=== PATIENT | male | born 1995 | race Caucasian/White ===

== ENCOUNTER 2018-02-13 21:47 | Emergency (ER) | payer SELFPAY ==
[2018-02-13] MEDS ORDERED: Sodium Chloride 0.9% 1,000 ML IV ONE (22:31)
--- NOTE | 2018-02-13 22:40 | ED Physician Chart ---
ED Chief Complaint/HPI - Patient Information Date Seen:: 02/13/18 Time Seen:: 22:20 Chief Complaint:: ams History of Present Illness:: 22 yr old male found down passed out in the streets possible meth use for several days pt very lethargic needs strong sternal rub to awaken he will open his eyes but not verbalizing much Allergies:: Allergies Allergy/AdvReac Type Severity Reaction Status Date / Time No Known Allergies Allergy Verified 02/13/18 22:03 Vitals:: Vital Signs - 8 hr 02/13/18 21:50 Temp 98.1 F HR 80 RR 18 BP 111/76 O2 Sat % 100 ED Review of Systems - Review of Systems Skin: Other (skin lesions face arms from picking) Other: pt too obtunded to answer ROS ED Past Medical History - Past Medical History Obtainable: No Family Medical History - Family Member Mother History Unknown: Yes ED Physical Exam - Physical Examination Head: Atraumatic Other Head comments:: pt with rash face legs with scabs from picking Eyes: Lids, conjuctiva normal Other Skin comments:: scabs face arms Neck: No JVD Other Respiratory comments:: occas rhonchi Cardio Vascular: RRR GI: Nondistended Extremities: No edema Other Neuro/Psych comments:: pt obtunded hard to awaken ED Assessment - Assessment General Assessment: AMS R/O METH ABUSE ED Septic Shock - . Is Septic Shock (SBP<90, OR Lactate>4 mmol\L) present?: No - <6hrs of presentation: Vital Signs: Vital Signs - 8 hr 02/13/18 21:50 Temp 98.1 F HR 80 RR 18 BP 111/76 O2 Sat % 100 ED Reassessment (Disposition) - Reassessment Reassessment:: AMS DRUG ABUSE
[2018-02-13 23:01] LABS: % BASOPHILS 0.6 % (0.0-2.0); % EOSINOPHILS 4.4 % (0.0-5.0); % LYMPHOCYTES 30.1 % (20.0-50.0); % MONOCYTES 6.2 % (2.0-10.0); % NEUTROPHILS 58.7 % (40.0-80.0); EOSINOPHILE ABSOLUTE 0.3 Th/cmm (0.1-0.4); HEMATOCRIT 34.4 % (41.0-60); HEMOGLOBIN 11.6 gm/dL (12-16); MEAN CORPUSCULAR HEMOGLOBIN 28.6 pg (26.0-30.0); MEAN CORPUSCULAR HGB CONC 33.6 pg (28.0-36.0); MEAN PLATELET VOLUME 7.6 fl; MONOCYTE ABSOLUTE 0.4 Th/cmm (0.3-1.0); PLATELET COUNT 190 Th/cmm (150-400); RED BLOOD COUNT 4.05 Mil/cmm (4.30-5.70); WHITE BLOOD COUNT 6.7 Th/cmm (4.8-10.8)
[2018-02-13 23:12] LABS: ACETAMINOPHEN < 10.0 ug/mL (10.0-30.0); ALB/GLOB RATIO 0.9 (1.0-1.8); ALBUMIN 3.2 gm/dL (4.2-5.5); ALKALINE PHOSPHATASE 74 U/L (34-104); ANION GAP 7.9 (7.0-16.0); BILIRUBIN,TOTAL 0.3 mg/dL (0.3-1.0); BUN - UREA NITROGEN 10 mg/dL (7-25); CALCIUM SERUM 8.8 mg/dL (8.6-10.3); CARBON DIOXIDE 31.4 mEq/L (21.0-31.0); CHLORIDE 100 mEq/L (98-107); CREATININE - SERUM 0.6 mg/dL (0.7-1.3); GFR AFRICAN-AMERICAN > 60.0 ml/min (>90); GFR NON AFRICAN-AMERICAN > 60.0 ml/min; GLUCOSE 99 mg/dL (70-105); POTASSIUM SERUM 3.3 mEq/L (3.5-5.1); SGOT 33 U/L (13-39); SGPT/ALT 34 U/L (7-52); SODIUM SERUM 136 mEq/L (136-145); TOTAL PROTEIN,SERUM 6.6 gm/dL (6.0-8.3)
[2018-02-13 23:13] LABS: SALICYLATES (ASPIRIN) < 25.0 mg/L (30.0-100.0)
[2018-02-14 00:11] LABS: AMPHETAMINE URINE POSITIVE (NEGATIVE); BARBITURATES URINE NEGATIVE (NEGATIVE); BENZODIAZEPINES QUAL URINE NEGATIVE (NEGATIVE); CANNABINOID THC NEGATIVE (NEGATIVE); COCAINE METABOLITE QUAL URINE NEGATIVE (NEGATIVE); METHADONE URINE NEGATIVE (NEGATIVE); METHAMPHETAMINES QUAL URINE POSITIVE (NEGATIVE); OPIATES (MORPHINE) QUAL. URINE POSITIVE (NEGATIVE); PHENCYCLIDINE (PCP) URINE NEGATIVE (NEGATIVE); TRICYCLICS (TCA) QUAL. URINE NEGATIVE (NEGATIVE)
[2018-02-14] MEDS ORDERED: Sodium Chloride 0.9% 1,000 ML IV ONE (00:20)
--- NOTE | 2018-02-14 07:44 | Diagnostic Imaging Report ---
Head CT without intravenous contrast Indication: Altered mental status Comparison: None Technique: Axial images were obtained from the vertex to the skull base without IV contrast. Coronal reconstructions were made. Total DLP: 635, [id number] FINDINGS: Images of the brain obtained without contrast demonstrate no acute hemorrhage. No mass lesions identified. The ventricles and basal cisterns are patent. The miles-white matter differentiation is preserved. There is no mass effect or midline shift. No skull fractures identified. No soft tissue swelling. The paranasal sinuses are clear. IMPRESSION: No acute intracranial abnormality.
== END 2018-02-14 07:07 | disposition home or self-care (01) ==
LOC: ER 21:47
DX: R41.82 Altered mental status, unspecified (principal); F15.10 Other stimulant abuse, uncomplicated
CPT/HCPCS: 36415-UA; 70450-TC; 80053-TC; 80307; 80320-TC; 80329-TC; 85025-TC; J7030